=== PATIENT | female | born 1945 | race Caucasian/White ===

== ENCOUNTER 2020-02-20 12:31 | Outpatient (CLI) | payer OTHER, SELFPAY ==
--- NOTE | ~2020-02-20 | MMUS_ITS ---
EXAMINATION: MM diagnostic gentry RT w andres, US breast RT limited HISTORY: Right breast lump TECHNIQUE: ML, MLO and CC full field and spot 3-D tomosynthesis images of the right breast were perfo rmed and synthetic 2-D images were generated. CAD analysis was submitted and interpreted. High resolu tion right upper outer quadrant breast ultrasound was performed. COMPARISON: 09/04/2019, 09/03/2018, 08/27/2017 bilateral digital screening mammograms BREAST PARENCHYMAL COMPOSITION: There are scattered areas of fibroglandular density. FINDINGS: MAMMOGRAPHIC FINDINGS: There is a stable approximately 7.5 mm circumscribed soft tissue density with central fat density con sistent with benign stable lymph node. There is suggestion of subtle ill-defined increased density in the very posterior upper outer quadran t, in the area of clinical complaint of breast lump. Ultrasound correlation was performed. ULTRASOUND: Irregular spiculated lobular hypoechoic approximately 6.4 x 10 mm mass at 9:00 5 cm from the nipple. There are prominent adjacent vessels and minimal internal vascularity. The lesion is suspicious. Ul trasound guided biopsy is recommended. There is a benign appearing circumscribed 4.4 x 8 mm lymph node at 10:00 6 cm from nipple, correspond ing to the stable lymph node noted mammographically. IMPRESSION: 1. Irregular spiculated lobular hypoechoic approximately 6.4 x 10 mm mass at 9:00 5 cm from the nippl e 2. Ultrasound guided biopsy is recommended. BIRADS Category 4: Suspicious abnormality Dr. Cobb telephoned Dr. Sinclair with the report and ultrasound guided biopsy recommendation on 02/19 at 1457 hours. Reviewed, dictated and finalized at location A. IMPRESSION: 1. Irregular spiculated lobular hypoechoic approximately 6.4 x 10 mm mass at 9: 00 5 cm from the nipple 2. Ultrasound guided biopsy is recommended. BIRADS Category 4: Suspicious abnormality Dr. Cobb telephoned Dr. Sinclair with the report and ultrasound guided biopsy recommendation on 02/20/2020 at 1457 hours.
== END 2020-02-20 12:32 | disposition home or self-care (01) ==
LOC: ANHIMG 12:37
PROVIDERS: PCP Family Medicine; Visit Provider Family Medicine
DX: N63.11 Unspecified lump in the right breast, upper outer quadrant (principal)
CPT/HCPCS: 76642; 77061; 77065; G0279

== ENCOUNTER → 2020-12-27 07:23 | Outpatient (REF) | payer OTHER, SELFPAY | LOC: ANHLAB 07:23 | PROVIDERS: PCP Internal Medicine; Visit Provider Nurse Practitioner | DX: C44.212 Basal cell carcinoma of skin of right ear and external auricular canal (principal); C44.319 Basal cell carcinoma of skin of other parts of face | CPT/HCPCS: 88305; 88331 ==

== ENCOUNTER → 2021-09-08 10:22 | Outpatient (REF) | payer OTHER, SELFPAY | LOC: ANHLAB 10:22 | PROVIDERS: PCP Internal Medicine; Visit Provider Nurse Practitioner | DX: C44.212 Basal cell carcinoma of skin of right ear and external auricular canal (principal) | CPT/HCPCS: 88305 ==

== ENCOUNTER → 2021-09-19 09:32 | Outpatient (REF) | payer OTHER, SELFPAY | LOC: ANHLAB 09:32 | PROVIDERS: PCP Internal Medicine; Visit Provider Nurse Practitioner | DX: C44.212 Basal cell carcinoma of skin of right ear and external auricular canal (principal) | CPT/HCPCS: 88305; 88331 ==

== ENCOUNTER 2022-08-21 10:52 | Outpatient (NON) | payer OTHER, SELFPAY | END 2022-08-21 11:00 | disposition home or self-care (01) | LOC: ANHLAB 08-23 10:52 | PROVIDERS: PCP Internal Medicine; Visit Provider Nurse Practitioner | DX: C44.329 Squamous cell carcinoma of skin of other parts of face (principal) | CPT/HCPCS: 88305; 88331 ==

== ENCOUNTER 2024-09-18 13:56 | Outpatient (CLI) | payer MEDICARE, SELFPAY ==
--- NOTE | ~2024-09-18 | MM_ITS ---
EXAMINATION: MM screening [facility] BI w andres HISTORY: Screening mammogram TECHNIQUE: Craniocaudal and mediolateral oblique 3-D tomosynthesis images were obtained and synthetic 2-D images were generated. CAD analysis was submitted and interpreted. COMPARISON: 02/20/2020, 09/04/2019, 09/03/2018 BREAST PARENCHYMAL COMPOSITION:Dense: The breasts are heterogeneously dense, which may obscure small masses. FINDINGS: No suspicious mass, calcification, or architectural distortion are identified in either oskar ast to suggest malignancy. There has been no suspicious interval change. IMPRESSION: No mammographic evidence of malignancy. Recommend routine screening mammography in one year. BI-RADS Category 1: Negative Reviewed, dictated and finalized at location . R
== END 2024-09-18 13:57 | disposition home or self-care (01) ==
LOC: ANHIMG 13:57
PROVIDERS: PCP Internal Medicine; Visit Provider Internal Medicine
DX: Z12.31 Encounter for screening mammogram for malignant neoplasm of breast (principal)
CPT/HCPCS: 77063; 77067

== ENCOUNTER 2025-09-22 15:45 | Outpatient (CLI) | payer MEDICARE, SELFPAY ==
--- NOTE | ~2025-09-22 | MM_ITS ---
EXAMINATION: MM screening gentry BI w andres HISTORY: Screening. TECHNIQUE: Craniocaudal and mediolateral oblique 3-D tomosynthesis images were obtained and synthetic 2-D images were generated. CAD analysis was submitted and interpreted. COMPARISON: 2023, 2019, and 2018. BREAST PARENCHYMAL COMPOSITION: There are scattered areas of fibroglandular tissue. FINDINGS: There is a metallic linear density in the left lateral retroareolar region, unchanged. This is thought to represent a foreign body of some sort. No suspicious masses are seen. There are no suspicious calcifications. No unexplained architectural distortion is seen. There are no skin or nipple abnormalities identified. There is no adenopathy seen on the images submitted. IMPRESSION: No mammographic evidence to suggest malignancy is seen. The patient may return to screening mammography as per ACR guidelines. BI-RADS Code: 1 - Negative. Reviewed, dictated and finalized at location B. RATE SUPERVISOR
--- OUTSIDE RECORDS SUMMARY | 2025-09-22 17:15 | XMS_ITS | Clinical Summary ---
Author Organization [facility] Address [address] [place] [address] Care Team Providers Care Technology Training Associate Name Role Phone Nyla Perkins MD Primary Care Provider [phone] Source Comments [facility],non-owned Affiliates and Associated Physician Practices is amultiple site organization consisting of ambulatory clinics and hospital sitesin [place], [place], [place] and [place]. This disclosure is being madepursuant to the Care Everywhere program and may not contain all information available regarding this patient. 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 Gender Identity Not on file Sexual Orientation Not on file Plan of Treatment Health Maintenance Due Date Last Done Comments BONE DENSITY TESTING 1945 DTAP/TDAP/TD VACCINES (1 - Tdap) 1962 PNEUMOCOCCAL VACCINE 50+ (1 of 1 - PCV) 1993 ZOSTER VACCINE (1 of 2) 1993 Respiratory Syncytial Virus (RSV) Vaccine Pt: or over 60 yrs (1 - 1-dose 75+ series) 2018 DEPRESSION SCREENING 10/29/2024 MEDICARE AWV CALENDAR YEAR 2024 COVID-19 VACCINE ( - 2024-2 6 season) 2025 INFLUENZA VACCINE (#1) 2025 HEPATITIS B VACCINE Aged Out No longe r eligible based on patient's age to complete this topic HIB VACCINE Aged Out No longer eligi ble based on patient's age to complete this topic HPV VACCINE Aged Out No longer eligi ble based on patient's age to complete this topic MENINGOCOCCAL (Group B) VACC INE SHARED DECISION-MAKING Aged Out No longer eligibl e based on patient's age to complete this topic MENINGOCOCCAL GROUPS A/C/Y/W VACCINE Aged Out No longer eligible b ased on patient's age to complete this topic Insurance [facility] MANAGED MEDICARE [place] [id number] Care Teams Technology Training Associate Relationship Specialty Start Date End Date Nyla Perkins MD [address] [place] [phone] PCP - General 11/17/20
--- OUTSIDE RECORDS SUMMARY | 2025-09-22 17:15 | XMS_ITS | Encounter Summary ---
Author Organization [facility] Address [address] [place] [address] Care Team Providers Care Calibration Specialist Name Role Phone Jericho Sinclair MD Primary Care Provider [phone] Encounter Details Date Type Department Care Team (Latest Contact Info) Description 11/13/2005 Outpatient Historical HIS [facility] TING Song Jr., Natalya Mccormick MD NO ADDRESS ON FILE SCREENING MAMM-MAILG NEOPL NEC (Primary Dx) Social History Tobacco Use Types Packs/Day Years Used Date Smoking Tobacco: Never Assessed Comments Unknown Sex and Gender Information Value Date Recorded Sex Assigned at Not on file Legal Sex Female 3:31 AM CLARITY DEVELOPER Gender Identity Not on file Sexual Orientation Not on file documented as of this encounter Plan of Treatment Not on file documented as of this encounter Visit Diagnoses Diagnosis Other screening mammogram- Primary documented in this encounter Care Teams Calibration Specialist Relationship Specialty Start Date End Date Jericho Sinclair MD [address] [place] [address] PCP - General 01/27/10 documented as of this encounter
--- OUTSIDE RECORDS SUMMARY | 2025-09-22 17:15 | XMS_ITS | Encounter Summary ---
Author Organization [facility] Address [address] [place] [address] Care Team Providers Care Records Management Engineer Name Role Phone Jericho Sinclair MD Primary Care Provider Encounter Details Date Type Department Care Team (Latest Contact Info) Description 12/16/2007 Outpatient Historical HIS [facility] TING Samuel Jr., Natalya Mccormick MD NO ADDRESS ON FILE Other Screening Mammogram Social History Tobacco Use Types Packs/Day Years Used Date Smoking Tobacco: Never Assessed Comments Unknown Sex and Gender Information Value Date Recorded Sex Assigned at Not on file Legal Sex Female 3:31 AM GROUNDS RESTORATION SPECIALIST Gender Identity Not on file Sexual Orientation Not on file documented as of this encounter Plan of Treatment Not on file documented as of this encounter Procedures Procedure Name Priority Date/Time Associated Diagnosis Comments MAMMO SCREEN BILAT W OR WO CAD Routine 12/16/2007 9:11 AM GROUNDS RESTORATION SPECIALIST documented in this encounter Results * MAMMO DIGITAL SCREEN BILAT (12/16/2007 9:11 AM GROUNDS RESTORATION SPECIALIST) Anatomical Region Laterality Modality Breast Bilateral Other 12/16/2007 9:11 AM GROUNDS RESTORATION SPECIALIST Narrative 12/16/2007 12:13 PM GROUNDS RESTORATION SPECIALIST [address] [address] Admit Date: 12/16/2007 KHADIJAH VANN Sex: F Admit Prov: NATALYA SAMUEL Date: 1945 Primary Care Prov: PCP , NONE CMRN: [id number] Room: YANIVGerardo N: [id number] IMAGING SERVICES Ordering Prov: NATALYA SAMUEL Accession Number: [id number] Interpretation BILATERAL FULL FIELD DIGITAL SCREENING MAMMOGRAM WITH CAD. Date: 12/16/2007 History: Routine Screening. Technique: Full field digital craniocaudal and mediolateral oblique projections of both breasts were obtained. Computer aided diagnosis was performed. Comparison: 10/2006, 10/2005, 10/2004 Breast Parenchymal Composition: Scattered fibroglandular densities. Findings: No suspicious mass, suspicious microcalcifications, or architectural distortion in either breast is identified. Since the prior study, there has been no significant interval change. The computer aided diagnosis detects no significant abnormality. Overall Assessment: BI-RADS category 1: Negative. Recommendation: Annual mammography is recommended. Assessment BIRADS: 1-Negative Recommendation: Normal interval follow-up Dictated by: FUNMILAYO MENDES Electronically signed by: FUNMILAYO MENDES 12/16/2007 12:13 Transcribed: 12/16/2007 11:58 AMK Procedure Note Provider, Historical - 12/16/2007 [facility] [address] [place], [place] [address] Admit Date: 12/16/2007 KAITLYN VANN Sex: F Admit Prov: NATALYA SAMUEL Date: 1945 Primary Care Prov: PCP , NONE CMRN: [id number] Room: PERI N: [id number] IMAGING SERVICES Ordering Prov: NATALYA SAMUEL Interpretation BILATERAL FULL FIELD DIGITAL SCREENING MAMMOGRAM WITH CAD. Date: 12/16/2007 History: Routine Screening. Technique: Full field digital craniocaudal and mediolateral oblique projections of both breasts were obtained. Computer aided diagnosiswas performed. Comparison: 10/2006, 10/2005, 10/2004 Breast Parenchymal Composition: Scattered fibroglandular densities. Findings: No suspicious mass, suspicious microcalcifications, or architectural distortion in either breast is identified. Since theprior study, there has been no significant interval change. The computeraided diagnosis detects no significant abnormality. Overall Assessment: BI-RADS category 1: Negative. Recommendation: Annual mammography is recommended. Assessment BIRADS: 1-Negative Recommendation: Normal interval follow-up Dictated by: FUNMILAYO MENDES Electronically signed by: FUNMILAYO MENDES 12/16/2007 12:13 Transcribed: 12/16/2007 11:58 AMK us Natalya Samuel Jr., MD MAMMO ORDERABLES Final Res ult documented in this encounter Visit Diagnoses Diagnosis Other screening mammogram documented in this encounter Care Teams Records Management Engineer Relationship Specialty Start Date End Date Jericho Sinclair MD [address] [place] [phone] PCP - General 01/27/10 documented as of this encounter
--- OUTSIDE RECORDS SUMMARY | 2025-09-22 17:15 | XMS_ITS | Encounter Summary ---
Author Organization [facility] Address [address] [place] [address] Care Team Providers Care Youth Liaison Officer Name Role Phone Nyla Perkins MD Primary Care Provider [phone] Encounter Details Date Type Department Care Team (Late st Contact Info) Description 11/07/2022 Lab Requisition [facility] Derm[facility] [address] [place] [address] Denver Mcmahon MD [address] [place] [address] Social History Tobacco Use Types Packs/Day Years Used Date Smoking Tobacco: Never Assessed Comments Unknown Sex and Gender Information Value Date Recorded Sex Assigned at Not on file Legal Sex Female 4:50 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 FARM 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 Gender Identity Not on file Sexual Orientation Not on file documented as of this encounter Plan of Treatment Not on file documented as of this encounter Procedures Procedure Name Priority Date/Time Associated Diagnosis Comments DERMATOPATHOLOGY Routine 11/06/2022 12:0 0 AM DAIRY FARM WORKER documented in this encounter Results * DERMATOPATHOLOGY (11/06/2022 12:00 AM DAIRY FARM WORKER) Case Report Dermatopathology Report Case: [id number] Authorizing Provider: Denver Mcmahon MD Collected: 11/06/2022 12:00 AM Ordering Location: [facility] Received: 11/07/2022 11:14 AM Pathologist: Blanca Cornelius MD Specimen: Skin, left upper lat. ankle 12:45 PM DAIRY FARM WORKER DERMATOPATHOLOGY LABORATORY Final Diagnosis Specimen A. SKIN, left upper lat. 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 ankle. The specimen consists of a shave biopsy measuring 08l08i2 mm. Jar 0. 3 12:45 PM [facility] DERMATOPATHOLOGY LABORATORY Microscopic Description Specimen A. SKIN, left upper lat. ankle: Arising in the epidermis and extending into the dermis there are irregularly shaped aggregates of keratinocytes showing evidence of premature cornification. 3 12:45 PM [facility] DERMATOPATHOLOGY LABORATORY Disclaimer An external and internal positive and negative controls are appropriate for the histochemical, immunohistochemical and immunofluorescence stain(s) in this case (if any), except where stated explicitly. The performance characteristics of the stain(s) cited in this report were developed and its performance characteristic determined by the Dermatopathology Laboratory at [facility], directed by Dr. Ajay Monahan. These tests need not be, and therefore are not, approved by the [place] Food and Drug Administration. The tests are used for clinical purposes. Billing Codes Specimen Charges Stain Charges 73503 1 3 12:45 PM [facility] DERMATOPATHOLOGY LABORATORY Embedded Images 3 12:45 PM [facility] DERMATOPATHOLOGY LABORATORY Pathology/Cytolog y TISSUE SPECIMEN FROM SKIN / Unknown 11/06/2022 11/07/2022 11:14 AM [facility] us Denver Mcmahon MD LAB - PATHOLOGY/CYTOLOGY ORDER GREGORY Final Result DERMATOPATHOLOGY LABORATORY [facility] - Department of Dermatology [facility] Medicine [address] [place] [address], [address] [phone] documented in this encounter Visit Diagnoses Not on filedocumented in this encounter Care Teams Youth Liaison Officer Relationship Specialty Start Date End Date Nyla Perkins MD [address] [place] [address] PCP - General 11/17/20 documented as of this encounter
--- OUTSIDE RECORDS SUMMARY | 2025-09-22 17:15 | XMS_ITS | Encounter Summary ---
Author Organization [facility] Address [address] [place] [address] Care Team Providers Care Juice Packaging Machines Setter Name Role Phone Jericho Sinclair MD Primary Care Provider Encounter Details Date Type Department Care Team (Latest Contact Info) Description 11/14/2004 Outpatient Historical HIS [facility] TING Song Jr., Natalya Mccormick MD NO ADDRESS ON FILE SCREENING MAMM-MAILG NEOPL-OTHER (Primary Dx) Social History Tobacco Use Types Packs/Day Years Used Date Smoking Tobacco: Never Assessed Comments Unknown Sex and Gender Information Value Date Recorded Sex Assigned at Not on file Legal Sex Female 3:31 AM GLOBAL CLIMATE CHANGE ANALYST Gender Identity Not on file Sexual Orientation Not on file documented as of this encounter Plan of Treatment Not on file documented as of this encounter Visit Diagnoses Diagnosis Other screening mammogram- Primary documented in this encounter Care Teams Juice Packaging Machines Setter Relationship Specialty Start Date End Date Jericho Sinclair MD [address] [place] [address] PCP - General 01/27/10 documented as of this encounter
--- OUTSIDE RECORDS SUMMARY | 2025-09-22 17:15 | XMS_ITS | Encounter Summary ---
Author Organization [facility] Address 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 Gender Identity Not on file Sexual Orientation Not on file documented as of this encounter Plan of Treatment Not on file documented as of this encounter Procedures Procedure Name Priority Date/Time Associated Diagnosis Comments MAMMO SCREEN BILAT W OR WO CAD Timed Study 02/05/2009 8:53 AM CDT documented in this encounter Results * MAMMO DIGITAL SCREEN BILAT (02/05/2009 8:53 AM CDT) Anatomical Region Laterality Modality Breast Bilateral Other 02/05/2009 8:53 AM CDT Narrative 02/08/2009 4:44 PM CDT [facility] [address], [place] [address] Admit Date: 02/05/2009 KHADIJAH VANN Sex: F Admit Prov: NATALYA SAMUEL Date: 1945 Primary Care Prov: PCP, NONE CMRN: [id number] Room: PERI SSN: [id number] IMAGING SERVICES Ordering Prov: NATALYA SAMUEL Accession Number: [id number] Interpretation BILATERAL FULL FIELD DIGITAL SCREENING MAMMOGRAM WITH CAD. History: Routine Screening. Technique: Full field digital craniocaudal and mediolateral oblique projections of both breasts were obtained. Computer aided diagnosis was performed. Comparison: 11/2007, 10/2006, 10/2005 Breast Parenchymal Composition: Scattered fibroglandular densities. Findings: No suspicious mass, suspicious microcalcifications, or architectural distortion in either breast is identified. Since the prior study, there has been no significant interval change. The computer aided diagnosis detects no significant abnormality. Overall Assessment: BI-RADS category 1: Negative. IMPRESSION: Annual mammography is recommended. Assessment BIRADS: 1-Negative Recommendation: Normal interval follow-up Dictated by: RANDEE MENDES Electronically signed by: RANDEE MENDES 02/08/2009 16:43 Transcribed: 02/08/2009 13:58 AMK Procedure Note Randee Mendes - 02/08/2009 [address] [place], [place] [address] Admit Date: 02/05/2009 ROMULOSUMITKAITLYN Sex: F Admit Prov: NATALYA SAMUEL Date: 1945 Primary Care Prov: PCP, NONE CMRN: [id number] Room: PERI SSN: [id number] IMAGING SERVICES Ordering Prov: NATALYA SAMUEL Interpretation BILATERAL FULL FIELD DIGITAL SCREENING MAMMOGRAM WITH CAD. History: Routine Screening. Technique: Full field digital craniocaudal and mediolateral oblique projections of both breasts were obtained. Computer aided diagnosiswas performed. Comparison: 11/2007, 10/2006, 10/2005 Breast Parenchymal Composition: Scattered fibroglandular densities. Findings: No suspicious mass, suspicious microcalcifications, or architectural distortion in either breast is identified. Since theprior study, there has been no significant interval change. The computeraided diagnosis detects no significant abnormality. Overall Assessment: BI-RADS category 1: Negative. IMPRESSION: Annual mammography is recommended. Assessment BIRADS: 1-Negative Recommendation: Normal interval follow-up Dictated by: RANDEE MENDES Electronically signed by: RANDEE MENDES 02/08/2009 16:43 Transcribed: 02/08/2009 13:58 AMK us Natalya Samuel Jr., MD MAMMO ORDERABLES Final Res ult documented in this encounter Visit Diagnoses Diagnosis Other screening mammogram documented in this encounter Care Teams Casing Man Relationship Specialty Start Date End Date Jericho Sinclair MD [address] [place] [address] PCP - General 01/27/10 documented as of this encounter
--- OUTSIDE RECORDS SUMMARY | 2025-09-22 17:15 | XMS_ITS | Encounter Summary ---
Author Organization [facility] Address [address] [place] [address] Care Team Providers Care Distribution Spec Name Role Phone Nyla Perkins MD Primary Care Provider [phone] Encounter Details Date Type Department Care Team (Late st Contact Info) Description 11/17/2020 Lab Requisition [facility] DermPath Lab [address] [place] [address] Denver Mcmahon MD [address] [place] [address] Social History Tobacco Use Types Packs/Day Years Used Date Smoking Tobacco: Never Assessed Comments Unknown Sex and Gender Information Value Date Recorded Sex Assigned at Not on file Legal Sex Female 4:50 PM CYTOLOGY MANAGER Gender Identity Not on file Sexual Orientation Not on file documented as of this encounter Plan of Treatment Not on file documented as of this encounter Procedures Procedure Name Priority Date/Time Associated Diagnosis Comments DERMATOPATHOLOGY Routine 11/16/2020 3:27 AM CYTOLOGY MANAGER documented in this encounter Results * DERMATOPATHOLOGY (11/16/2020 3:27 AM CYTOLOGY MANAGER) Case Report Dermatopathology Report Case: [id number] Authorizing Provider: Denver Mcmahon MD Collected: 11/16/2020 03:27 AM Ordering Location: [facility]erm[facility] Lab Received: 11/17/2020 06:49 AM Pathologist: Lynn Monahan MD Specimens: A) - Skin, left tricep B) - Skin, right forehead C) - Skin, right conchal bowl 2:07 PM CYTOLOGY MANAGER DERMATOPATHOLOGY LABORATORY Final Diagnosis Specimen A. 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 SKIN, right forehead: BASAL CELL CARCINOMA, NODULAR TYPE (C44.319) Specimen C. SKIN, right conchal bowl: BASAL CELL CARCINOMA, INFILTRATIVE PATTERN (C44.212) 1 2:[address] [facility] DERMATOPATHOLOGY LABORATORY at 1407 CYTOLOGY MANAGER Clinical History A: BCCA vs SCCA. Path # [id number]. B: BCCA vs SCCA. Path # [id number]. C: BCCA vs SCCA. Path # [id number]. 2:[address] [facility] DERMATOPATHOLOGY LABORATORY Gross Description Specimen A: Received is one formalin filled container labeled with the patient's name and designated left tricep. The specimen consists of a shave biopsy measuring 8u6h4rh. Jar 0. Specimen B: Received is one formalin filled container labeled with the patient's name and designated right forehead. The specimen consists of a shave biopsy measuring [id number]. Jar 0. Specimen C: Received is one formalin filled container labeled with the patient's name and designated right conchal bowl. The specimen consists of a shave biopsy measuring 4v8s3qv. Jar 0. 1 2:[address] [facility] DERMATOPATHOLOGY LABORATORY Microscopic Description Specimen A. SKIN, left tricep: The epidermis shows parakeratosis, full thickness disorderly maturation of keratinocytes, mitoses at different levels, and dyskeratotic cells. Specimen B. SKIN, right forehead: Within the dermis there are aggregates of basaloid cells with a high nuclear to cytoplasmic ratio and peripheral palisading. Specimen C. SKIN, right conchal bowl: Within the dermis there are nodular aggregates of basaloid cells associated with fibromyxoid stroma and epithelial-stromal clefts. At the advancing margin of the neoplasm, there are smaller angulated nests that infiltrate the dermis. 1 2:[address] [facility] DERMATOPATHOLOGY LABORATORY Disclaimer An external and internal positive and negative controls are appropriate for the histochemical, immunohistochemical and immunofluorescence stain(s) in this case (if any), except where stated explicitly. The performance characteristics of the stain(s) cited in this report were developed and its performance characteristic determined by the Dermatopathology Laboratory at [facility], directed by Dr. Ajay Monahan. These tests need not be, and therefore are not, approved by the [place] Food and Drug Administration. The tests are used for clinical purposes. Billing Codes Specimen Charges Stain Charges 12965 21365 31288 1 1 1 1 2:07 PM CYTOLOGY MANAGER DERMATOPATHOLOGY LABORATORY Embedded Images 1 2:07 PM CYTOLOGY MANAGER DERMATOPATHOLOGY LABORATORY Pathology/Cytology TISSUE SPECIMEN FROM SKIN / Unknown 11/16/2020 3:27 AM CYTOLOGY MANAGER 11/17/2020 6:49 AM CYTOLOGY MANAGER Miscellaneous samples (specimen) TISSUE SPECIMEN FROM SKIN / Unknown 11/16/2020 3:27 AM CYTOLOGY MANAGER 11/17/2020 6:49 AM CYTOLOGY MANAGER Miscellaneous samples (specimen) TISSUE SPECIMEN FROM SKIN / Unknown 11/16/2020 3:27 AM CYTOLOGY MANAGER 11/17/2020 6:49 AM CYTOLOGY MANAGER Denver Mcmahon MD LAB - PATHOLOGY/CYTOLOGY ORDER GREGORY Final Result DERMATOPATHOLOGY LABORATORY [facility] - Department of Dermatology [facility] [address] [place] [address], [address] [phone] documented in this encounter Visit Diagnoses Not on filedocumented in this encounter Care Teams Distribution Spec Relationship Specialty Start Date End Date Nyla Perkins MD [address] [place] [id number] PCP - General 11/17/20 documented as of this encounter
--- OUTSIDE RECORDS SUMMARY | 2025-09-22 17:15 | XMS_ITS | Encounter Summary ---
Author Organization [facility] Address [address] [facility] [place] [address] Care Team Providers Care Water Sander Name Role Phone Nyla Perkins MD Primary Care Provider [phone] Encounter Details Date Type Department Care Team (Late st Contact Info) Description 05/05/[address] 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 DermPath Lab Received: 05/05/2022 02:48 PM Pathologist: Ines Lazaro MD Specimen: Skin, left posterior crown 12:48 PM CDT DERMATOPATHOLOGY LABORATORY Final Diagnosis Specimen A. SKIN, left posterior crown: SQUAMOUS CELL CARCINOMA IN SITU, PRESENT AT THE BASE OF THE SPECIMEN (D04.4) (see microscopic description and comment) 2 12:48 PM CDT DERMATOPATHOLOGY LABORATORY at 1248 CDT Clinical History BCCA vs. SCCA. Path# [id number] 2 12:48 PM CDT DERMATOPATHOLOGY LABORATORY Gross Description Specimen A: Received is one formalin filled container labeled with the patient's name and designated left posterior crown. The specimen consists of a shave biopsy measuring [id number]. Jar 0. 2 12:48 PM CDT DERMATOPATHOLOGY LABORATORY Microscopic Description Specimen A. SKIN, left posterior crown: The epidermis shows parakeratosis, full thickness disorderly maturation of keratinocytes, mitoses at different levels, and dyskeratotic cells. The lesion extends to the base of the biopsy. COMMENT: An invasive squamous cell carcinoma cannot be ruled out. 2 12:48 PM CDT DERMATOPATHOLOGY LABORATORY Disclaimer An external and internal positive and negative controls are appropriate for the histochemical, immunohistochemical and immunofluorescence stain(s) in this case (if any), except where stated explicitly. The performance characteristics of the stain(s) cited in this report were developed and its performance characteristic determined by the Dermatopathology Laboratory at [facility], directed by Dr. Ajay Monahan. These tests need not be, and therefore are not, approved by the [place] Food and Drug Administration. The tests are used for clinical purposes. Billing Codes Specimen Charges Stain Charges 30211 1 2 12:48 PM CDT DERMATOPATHOLOGY LABORATORY Embedded Images 2 12:48 PM CDT DERMATOPATHOLOGY LABORATORY Pathology/Cytolog y TISSUE SPECIMEN FROM SKIN / Unknown 05/05/2022 05/05/2022 2:48 PM CDT us Denver Mcmahon MD LAB - PATHOLOGY/CYTOLOGY ORDER GREGORY Final Result DERMATOPATHOLOGY LABORATORY [facility] - Department of Dermatology [address], [address] [phone] documented in this encounter Visit Diagnoses Not on filedocumented in this encounter Care Teams Water Sander Relationship Specialty Start Date End Date Nyla Perkins MD [address] [place] [address] PCP - General 11/17/20 documented as of this encounter
--- OUTSIDE RECORDS SUMMARY | 2025-09-22 17:15 | XMS_ITS ---
Author Organization [facility] Address [address] [place] [address] Care Team Providers Care Information Assurance Manager Name Role Phone Caden Smith MD Unavailable [phone] Cody Zayas MD Unavailable Alyssia Valdez MD Unavailable [phone] Candace Dillon NP Unavailable [phone] Nyla Perkins MD Primary Care Provider + Active Problems Problem Noted Date Diagnosed Date Age-related osteoporosis [place] current pathological fracture 03/05/2024 Aromatase inhibitor use 03/05/2024 Facet arthritis of cervical region 10/04/2023 Coronavirus infection 04/12/2022 Malignant neoplasm of female breast 11/16/2020 History of right breast cancer 03/15/2020 Cancer Staging:Clinical stage from 03/17/2020:Stage IA(cT1b, cN0, cM0, G2, ER+, ME+, HER2+) - Signed by Cody Zayas MD on 05/18/2020 Pathologic stage from 04/01/2020:Stage IA(pT1a, pN0(sn), cM0, G2, ER+, ME+, HER2+) - Signed by Cody Zayas MD on 05/18/2020 Current Treatment and Therapy Plans No current plan information found. Other Current Plans Zoledronic Acid (Reclast) Infusion* Plan Start Date:04/03/2024 Plan Provider:Nataliya Oconnor MD Linked Problems Age-related osteoporosis wit hout current pathological fractureAromatase inhibitor use Treatment Medications No medications scheduled. Past Treatment and Therapy Plans Oncology Chemotherapy Treatment Plan Name Start Date Discontinue Date Treatment Medications Discontinue Reason Plan Provider Cycles Trastuzumab 21 Day Cycles (Neoadjuvant / Adjuvant) - Breast 06/01/2020 10/26/2023 trastuzumab-a nns (BJORN) IVPB Automatic discontinuation of dormant plans Caden Smith MD 18 of 18 cycles started Radiation Treatments * Course C1 05/26/2020 - 06/22/2020 Treatment Period Energy Fraction Dose Fractions Total Dose Plans Planned Tumor Bed 06/17/2020 - 06/22/2020 250 4 / 1,000 Right Breast 05/26/2020 - 06/16/2020 266 16 / 4,256 Reference Points Delivered DVP_Tumor Bed 06/17/2020 - 06/22/2020 1,000 DVP_Right Breast 05/26/2020 - 06/16/2020 4,256 Lifetime Dose Tracking * Chemical Lifetime Dose Automatic Entry Manual Entr y Fluoro Time 0.9 minutes 0.9 minutes 0 minutes Air kerma at the reference point (Ka,r) 1.49 mGy 1 .49 mGy 0 mGy
--- OUTSIDE RECORDS SUMMARY | 2025-09-22 17:15 | XMS_ITS | Encounter Summary ---
Author Organization [facility] Address [address] [place] [address] Care Team Providers Care Elevator Operator Freight Name Role Phone Nyla Perkins MD Primary Care Provider [phone] Encounter Details Date Type Department Care Team (Late st Contact Info) Description 03/07/2023 Lab Requisition [facility] D[facility] Lab [address] [place] [address] Denver Mcmahon MD [address] [facility] [place] [address] Social History Tobacco Use Types Packs/Day Years Used Date Smoking Tobacco: Never Assessed Comments Unknown Sex and Gender Information Value Date Recorded Sex Assigned at Not on file 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 Gender Identity Not on file Sexual Orientation Not on file documented as of this encounter Plan of Treatment Not on file documented as of this encounter Procedures Procedure Name Priority Date/Time Associated Diagnosis Comments DERMATOPATHOLOGY Routine 03/06/2023 12:0 0 AM CDT documented in this encounter Results * DERMATOPATHOLOGY (03/06/2023 12:00 AM CDT) Case Report Dermatopathology Report Case: [id number] Authorizing Provider: Denver Mcmahon MD Collected: 03/06/2023 12:00 AM Ordering Location: [facility] Received: 03/07/2023 04:25 PM Pathologist: Ines Lazaro MD Specimen: Skin, left posterior scalp 6:12 PM CDT DERMATOPATHOLOGY LABORATORY Final Diagnosis Specimen A. 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 The specimen consists of a shave biopsy measuring 9x6x1 mm. Jar 0+. 3 6:12 PM CDT DERMATOPATHOLOGY LABORATORY Microscopic Description Specimen A. SKIN, left posterior scalp: The epidermis shows parakeratosis, full thickness disorderly maturation of keratinocytes, mitoses at different levels, and dyskeratotic cells. 3 6:12 PM CDT DERMATOPATHOLOGY LABORATORY Disclaimer An external and internal positive and negative controls are appropriate for the histochemical, immunohistochemical and immunofluorescence stain(s) in this case (if any), except where stated explicitly. The performance characteristics of the stain(s) cited in this report were developed and its performance characteristic determined by the Dermatopathology Laboratory at [facility], directed by Dr. Ajay Monahan. These tests need not be, and therefore are not, approved by the [place] Food and Drug Administration. The tests are used for clinical purposes. Billing Codes Specimen Charges Stain Charges 41852 1 3 6:12 PM CDT DERMATOPATHOLOGY LABORATORY Embedded Images 3 6:12 PM CDT DERMATOPATHOLOGY LABORATORY Pathology/Cytolog y TISSUE SPECIMEN FROM SKIN / Unknown 03/06/2023 03/07/2023 4:25 PM CDT us Denver Mcmahon MD LAB - PATHOLOGY/CYTOLOGY ORDER GREGORY Final Result DERMATOPATHOLOGY LABORATORY [facility] - Department of Dermatology [address], [address] [phone] documented in this encounter Visit Diagnoses Not on filedocumented in this encounter Care Teams Elevator Operator Freight Relationship Specialty Start Date End Date Nyla Perkins MD [address] [place] [phone] PCP - General 11/17/20 documented as of this encounter
--- OUTSIDE RECORDS SUMMARY | 2025-09-22 17:15 | XMS_ITS | Encounter Summary ---
Author Organization [facility] Address [address] [place] [address] Care Team Providers Care Territory Sales Professional Name Role Phone Jericho Sinclair MD Primary Care Provider [phone] Caden Smith MD Unavailable [phone] Cody Zayas MD Unavailable [phone] Alyssia Valdez MD Unavailable [phone] Candace Dillon NP Unavailable Nyla Perkins MD Primary Care Provider + Encounter Details Date Type Department Care Team (Late st Contact Info) Description 03/29/2020 Telephone [facility] - Imaging [address] [place] [address] Alyssia Valdez MD [address] [facility] [address] [place] [address] Social History Tobacco Use Types Packs/Day Years Used Date Smoking Tobacco: Never Smokeless Tobacco: Never Alcohol Use Standard Drinks/Week Comments Yes 2 (1 standard drink = 0.6 oz pur e alcohol) AUDIT-C Answer Date Recorded Q1: How often do you have a drink containing alc ohol? 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 Not on file Not on file Not on file documented as of this encounter Functional Status * Question Answer Date of Assessment Author MAP (mmHg) 79 04/01/2020 3:20 PM CDT Sarah Diaz RN * Clements Fall Risk Question Answer Date of Assessment Author History of Falling 25 04/01/2020 3:40 PM CDT Sarah Marshall RN Secondary Diagnosis 0 04/01/2020 3:40 PM CD Sarah Tobar RN Ambulatory Aids 0 04/01/2020 3:40 PM CDT Sarah Saleem RN Intravenous Therapy/Heparin/Saline Lock 0 04/01/2020 3:40 PM Sarah Pratt RN Gait/Transferring 0 04/01/2020 3:40 PM CDT Sarah Marshall RN Mental Status 0 04/01/2020 3:40 PM CDT Sarah Harris RN Clements Fall Risk Score (Score >= 45 places fall precaution order) 25 04/01/2020 3:40 PM SARAHT Sarah Marshall RN * Fall Risk Interventions Question Answer Date of Assessment Author All Low Fall Interventions Applied Yes 04/01/2020 3:40 PM Sarah Pratt RN * Integumentary Question Answer Date of Assessment Author Skin Color Appropriate for ethnicity 04/01/2020 2:40 PM Sarah Pratt RN Skin Condition/Temp Warm;Dry 04/01/2020 2:40 PM Sarah Dominguez RN Skin Integrity Surgical incision 04/01/2020 2: 40 PM SARAHT Sarah Marshall RN Skin Turgor Non-tenting 04/01/2020 2:40 PM CDT Sarah Diaz RN Integumentary (WDL) WDL 04/01/2020 1 2:10 PM CDT Carey Alarcon RN Skin Location right breast 04/01/2020 2:40 PM CDT Sarah Harris, DAI * Wound (LDAs) Question Answer Date of Assessment Author Type of Wound (LDA) Surgical site 04/01/2020 2:40 PM Sarah Boston, DAI * Fall Risk Interventions Question Answer Date of Assessment Author All Low Fall Interventions Applied Yes 04/01/2020 3:40 PM CDT Sarah Marshall, DAI documented as of this encounter Mental Status * Question Answer Entry Date Author Neuro (WDL) WDL 04/01/2020 3:10 PM CDT Snehal Ham RN documented in this encounter Plan of Treatment Not on file documented as of this encounter Visit Diagnoses Not on filedocumented in this encounter Care Teams Territory Sales Professional Relationship Specialty Start Date End Date Jericho Sinclair MD [address] [place] [address] PCP - General Family Medicine 02/23/20 11/02/20 Nyla Perkins MD [address] [address] PCP - General Internal Medicine 11/03/20 Caden Smith MD [address] [place] [address] Medical Oncologist/Animal Ride Manager Hematology and Oncology 03/23/20 Cody Zayas MD [address] DEPT [place] [address] Consulting Physician Radiation Oncology 03/23/20 Alyssia Valdez MD [address] [address] Consulting Physician Surgical Oncology 03/23/20 Candace Dillon, SEVERO [address] [place] [address] Nurse Practitioner Surgery 04/01/20 documented as of this encounter
--- OUTSIDE RECORDS SUMMARY | 2025-09-22 17:15 | XMS_ITS | Clinical Summary ---
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 Gender Identity Not on file Sexual Orientation Not on file Occupation Industry Job Start Date Job End Date Not on file Not on file Not on file Not on file Plan of Treatment Health Maintenance Due Date Last Done Comments DTAP/TDAP/TD VACCINES (1 - Tdap) 1962 PNEUMOCOCCAL VACCINE 50+ YEARS (1 of 1 - PCV) 07/09/19 93 ZOSTER VACCINE (1 of 2) 1993 OSTEOPOROSIS SCREENING 2008 RSV VACCINE (60+ or ) (1 - 1-dose 75+ series) 2018 INFLUENZA VACCINE (#1) 2025 Insurance [employer] BLUE ACCESS/TRUE BLUE PPO Care Teams Track Helper Relationship Specialty Start Date End Date Jericho Sinclair MD [address] [place] [address] PCP - General 01/27/10
--- OUTSIDE RECORDS SUMMARY | 2025-09-22 17:15 | XMS_ITS | Encounter Summary ---
Author Organization [facility] Address 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
--- OUTSIDE RECORDS SUMMARY | 2025-09-22 17:15 | XMS_ITS | Clinical Summary ---
Author Organization [facility] Address [address] [place] [address] Care Team Providers Care Continuous Dryout Operator Name Role Phone Caden Smith MD Unavailable [phone] Cody Zayas MD Unavailable Alyssia Valdez MD Unavailable [phone] Candace Dillon NP Unavailable [phone] Nyla Perkins MD Primary Care Provider + Allergies Active Allergy Reactions Criticality Noted Date Comments Other Rash Medium 04/27/2020 Unknown cleansing agent used in previous surgery Medications multivitamin capsule Take 1 capsule by mouth daily Active anastrozole (ARIMIDEX) 1 mg tablet Take 1 tablet by mouth once daily 90 tablet 3 05/08/2024 Active Active Problems Problem Noted Date Diagnosed Date Age-related osteoporosis wit hout current pathological fracture 03/05/2024 Aromatase inhibitor use 03/05/2024 Facet arthritis of cervical region 10/04/2023 Coronavirus infection 04/12/2022 Malignant neoplasm of female breast 11/16/2020 History of right breast cancer 03/15/2020 Cancer Staging:Clinical stage from 03/17/2020:Stage IA(cT1b, cN0, cM0, G2, ER+, AZ+, HER2+) - Signed by Cody Zayas MD on 05/18/2020 Pathologic stage from 04/01/2020:Stage IA(pT1a, pN0(sn), cM0, G2, ER+, AZ+, HER2+) - Signed by Cody Zayas MD on 05/18/2020 Immunizations Immunization Administration Dates Next Due Influenza, Quadrivalent, Hig h Dose, Preservative Free, Intrr 08/02/2020 Influenza, Quadrivalent, Split, Intramuscular Influenza, Quadrivalent, Spl it, Preservative Free, Intramuscular 09/11/2019 Influenza, Trivalent, High D ose, Split, Preservative Free, Intramuscular 08/02/2015 Influenza, Trivalent, IM (MDV) 07/14/2014,2012 Pneumococcal Polysaccharide PPV23 08/19/2012 ZOSTER LIVE 08/19/2012 ZOSTER Recombinant 07/25/2019,05/10/2019 Surgical History Surgery Date Site/Laterality Comments BREAST SURGERY benign left biopsy late BREAST BIOPSY 03/17/2020 Right COLONOSCOPY 12/18/2005 TUBAL LIGATION 10/29/1969 - 10/28/1970 Bilateral CATARACT EXTRACTION, BILATERAL TONSILLECTOMY FACET BLOCK CERVICAL THORACIC 1 LEVEL LEFT 11/26/2023 Left FACET BLOCK CERVICAL THORACIC 1 LEVEL LEFT 12/17/2023 Left Medical History Medical History Date Comments Internal hemorrhoids 11/2005 seen on c-s cope Breast cancer (HCC) Family History Medical History Relation Name Comments Lung cancer Brother Breast cancer Father's Sister Breast cancer Mother Cancer Mother's Sister Relation Name Status Comments Brother Father Father's Sister Mother Mother's Sister Social History Tobacco Use Types Packs/Day Years Used Date Smoking Tobacco: Never Smokeless Tobacco: Never Tobacco Cessation:Counseling Given: Not Answered Alcohol Use Standard Drinks/Week Comments Yes 2 (1 standard drink = 0.6 oz pur e alcohol) AUDIT-C Answer Date Recorded Q1: How often do you have a drink containing alc ohol? Monthly or less 03/14/2022 Q2: How many drinks containi ng alcohol do you have on a typical day when you are drinking? 1 or 2 03/14/2022 Q3: How often do you have si x or more drinks on one occasion? Never 03/14/2022 Personal Safety Answer Date Recorded Have you ever been in or are you currently in a harmful physical or emotional relationship or is someone making you feel afraid or unsafe? 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 Not on file Not on file Not on file Obstetrics History Para Term AB IAB SAB Ectopic Multiple Livin g Live Births 5 2 Date Outcome GA Total Labor Labor/2nd/3rd Weight Sex Type Anes PTL Janay A1 A5 Name Clin Para Para Last Filed Vital Signs Vital Sign Reading Time Taken Comments Blood Pressure 139/76 05/05/2025 9:54 AM CDT Pulse 68 05/05/2025 9:54 AM CDT Temperature 36.8 C (98.2 F) 05/05/2025 9:54 AM CDT Respiratory Rate 16 04/03/2024 2:50 PM CDT Oxygen Saturation 100% 05/05/2025 9:54 AM CDT Inhaled Oxygen Concentration - - Weight 49.4 kg (109 lb) 05/05/2025 9:54 AM CDT Height 161.9 cm (5' 3.75) 03/05/2024 12:40 PM C DT Body Mass Index 18.86 03/05/2024 12:40 PM CDT Plan of Treatment Health Maintenance Due Date Last Done Comments Depression Screening 1945 DTaP/Tdap/Td Vaccine (1 - Tdap) 1954 Hepatitis B Screening 1961 Well Visit 65+ 2008 Pneumococcal vaccine 65+ (2 of 2 - PCV) 08/19/2013 08/19/2012 Fall Risk Assessment 12/17/2024 12/17/2023 Influenza Vaccine (#1) 2025 , 09/11/2019, 09/11/2019, Additional history exists Osteoporosis Screening-Bone Density Scan 03/05/2026 03/05/2024, 09/12/2022, 07/12/2020 Zoster Vaccine Completed 07/25/2019, 04/28, 08/19/2012 Procedures Procedure Name Priority Date/Time Associated Diagnosis Comments DEXA TBS AXIAL SKELETON BONE DENSITY 1 OR MORE SITES Schedule Routine, Read Routine (OP Routine) 03/05/2024 12:37 PM CDT Age-related osteoporosis without current pathological fracture from Last 3 Months or Most Recently Relevant to Health Maintenance Results * Dexa TBS Axial Skeleton Bone Density 1 or more sites (03/05/2024 12:37 PM CDT) Anatomical Region Laterality Modality Wrist, Body N/A Radiographic Ivy ging Narrative 03/05/2024 3:09 PM CDT Patient Name: Khadijah Vann Date of : 1945 Date of scan: 03/05/2024 Bone mineral density was performed on a Holo[employer] Discovery Densitometer. Based on machine cross-calibration and precision studies the least significant changes of this densitometer is 0.024 g/cm2 at the spine, 0.020 g/cm2 at the total proximal femur, and 0.014g/cm2 at the forearm. HISTORY: This is a 78 y.o. postmenopausal female with a history of breast cancer and low bone mass. She reports that she has never smoked. She has never used smokeless tobacco. Currently on treatment with calcium, vitamin D, and aromatase inhibitor and previously treated with hormone replacement therapy. INDICATIONS: Menopause status, treatment monitoring, aromatase inhibitor therapy, and history of low bone mass. FINDINGS: BONE MINERAL DENSITY OF THE LUMBAR SPINE Bone Mineral Density (BMD) of the lumbar spine was measured from L1-L4 and the average density was calculated to be 0.871 gm/cm2. This corresponds to a T-score (standard deviations from the mean of young adults) of -1.6. There is no previous study available for comparison. BONE MINERAL DENSITY OF THE PROXIMAL FEMUR Bone Mineral Density (BMD) of the left hip total was found to be 0.715 gm/cm2. This corresponds to a T-score standard deviations from the mean of young adults of -1.9. Femoral neck is 0.626 gm/cm2 with a T-score (standard deviations from the mean of young adults) of -2.0. There is no previous study available for comparison. SUMMARY: Bone mineral density shows evidence of low bone mass at the lumbar spine and proximal femur and moderately increased fracture risk (Osteopenia). The lumbar spine Trabecular Bone Score is 1.309 which suggests partially degraded bone microarchitecture compared to the general population. Final decisions regarding diagnostic or therapeutic recommendations should include BMD, TBS, additional clinical risk factors as well the clinical context of the patient. Please see attached TBS results for further details. ADDITIONAL COMMENTS: Postmenopausal Women and Men Over 50: Diagnostic criteria: Osteoporosis: BMD at or below -2.5 T-score; Osteopenia (low bone mass): BMD between -1.0 and -2.5 T-score. If the patient has a history of a fragility fracture, a fracture that occurred with trauma equivalent to a fall from a standing position or less, then the diagnosis is osteoporosis regardless of bone density. The history and data sections of the bone mineral density scan were prepared by Lucy Hudson)(CBDT) who is accredited by the International Society of Clinical Densitometry. The overall patient assessment and scan interpretation were performed by Nataliya Oconnor M.D. who is certified by the International Society of Clinical Densitometry. [id number] Nataliya Oconnor MD IMG DXA PROCEDURES Final R esult from Last 3 Months or Most Recently Relevant to Health Maintenance Insurance UHC MEDICARE ADVANTAGE AETNA MEDICARE GOLD AETNA MEDICARE GOLD Care Teams Continuous Dryout Operator Relationship Specialty Start Date End Date Nyla Perkins MD [address] [facility] [address] [place] [address] PCP - General Internal Medicine 11/03/20 Caden Smith MD Medical Oncologist/Professional [employer] Hematology and Oncology 03/23/20 Cody Zayas MD [address] [place] [address] Consulting Physician Radiation Oncology 03/23/20 Alyssia Valdez MD [address] [facility] [address] [place] [address] Consulting Physician Surgical Oncology 03/23/20 Candace Dillon NP [address] [facility] [address] [place] [address] Nurse Practitioner Surgery 04/01/20
== END 2025-09-22 15:46 | disposition home or self-care (01) ==
LOC: ANHFOHIMG 15:46
PROVIDERS: PCP Internal Medicine; Visit Provider Internal Medicine
DX: Z12.31 Encounter for screening mammogram for malignant neoplasm of breast (principal)
CPT/HCPCS: 77063; 77067